=== PATIENT | female | born 1995 | race Caucasian/White ===

== ENCOUNTER 2017-08-24 01:50 | Emergency (ER) | payer OTHER ==
[~2017-08-24] VITALS: Ht 162.6 cm; Wt 63.5 kg
[~2017-08-24 01:50] MED LIST: CEPH250SUA PO; CODACEE120 PO; IBUP100S PO; Percocet 5-3251 EACH PO; Zofran Odt4 MG SL
== END 2017-08-24 03:10 | disposition home or self-care (01) ==
LOC: ER 01:50
DX: S60.221A Contusion of right hand, initial encounter (principal); W22.8XXA Striking against or struck by other objects, initial encounter
CPT/HCPCS: 73130; 99283

== ENCOUNTER 2018-11-02 16:27 | Emergency (ER) | payer OTHER ==
[~2018-11-02] VITALS: Ht 165.1 cm; Wt 72.6 kg
== END 2018-11-02 17:50 | disposition home or self-care (01) ==
LOC: ER 16:27
DX: Z32.01 Encounter for pregnancy test, result positive (principal); O99.330 Smoking (tobacco) complicating pregnancy, unspecified trimester; F17.210 Nicotine dependence, cigarettes, uncomplicated
CPT/HCPCS: 36415; 84702; 99283